=== PATIENT | male | born 1960 | race Caucasian/White ===

== ENCOUNTER 2016-09-10 13:38 | Emergency (ER) | payer OTHER ==
[2016-09-10] MEDS ORDERED: Lidocaine 1% 20 ML MDV ONE (13:53)
[2016-09-10 14:13] VITALS: BP 134/65
[2016-09-10] MEDS ORDERED: Bacitracin/Neomycin/Polymyxin B Oint 0.9 GM U/D Packet ONE (14:17)
--- NOTE | 2016-09-10 14:26 | EDM.PDOC ---
ED HPI Skin/Rash - General Chief Complaint: Laceration Stated Complaint: Cut to RT thumb Time Seen by Provider: 09/10/16 14:00 Source: Reports: Patient History Limitations: Reports: No limitations - History of Present Illness INITIAL COMMENTS - FREE TEXT/NARRATIVE: PT STATES HE ACCIDENTLY CUT RIGHT HAND WITH SHARP KNIFE. DENIES ANY OTHER INJURY Symptom Onset Date: 09/10/16 Timing: Reports: still present Location, Skin: Reports: upper extremity, right Severity: mild Known Identified Source: yes Place of Occurrence: home Associated Symptoms: Reports: no other symptoms - Related Data Allergies Allergy/AdvReac Type Severity Reaction Status Date / Time No Known Drug Allergies Allergy Cannot Verified 04/11/14 13:01 Remember Home Meds: Ambulatory Orders Medication Instructions Recorded Confirmed Multivitamin [Multi-Day Vitamins] 1 tab PO DAILY 09/10/16 09/10/16 Social & Family History - Tobacco Use Smoking Status *Q: Never Smoker Second Hand Smoke Exposure: No - Alcohol Use Days Per Week of Alcohol Use: 0 - Recreational Drug Use Recreational Drug Use: No ED ROS GENERAL - Review of Systems Review Of Systems: ROS reveals no pertinent complaints other than HPI. Constitutional: Reports: no symptoms HEENT: Reports: No symptoms Respiratory: Reports: No Symptoms Cardiovascular: Reports: No symptoms Endocrine: Reports: no symptoms GI/Abdominal: Reports: No symptoms : Reports: no symptoms Musculoskeletal: Reports: no symptoms Skin: Reports: wound (RIGHT HAND LACERATION) Neurological: Reports: No Symptoms Psychiatric: Reports: No symptoms Hematologic/Lymphatic: Reports: no symptoms Immunologic: Reports: no symptoms ED EXAM, SKIN/RASH Exam: See Below Exam Limited By: No limitations General Appearance: alert, WD/WN, no apparent distress Throat/Mouth: Normal inspection, Normal oropharynx, No airway compromise Respiratory/Chest: no respiratory distress Extremities: other (2 CM LINEAR LAC TO RIGHT THUMB) Psychiatric: normal affect, normal mood Skin: Warm, Dry, Intact, Normal color, No rash Location, Skin: upper extremity, right Lymphatic: no adenopathy ED SKIN PROCEDURES - Laceration/Wound Repair Right Hand Lac/wound length in cm: 2 Appearance: superficial Distal NVT: neuro & vascular intact, no tendon injury Anesthetic type: local Local anesthesia - Lidocaine (Xylocaine): 1% plain Local anesthetic volume: 2cc Skin prep: providone-iodine (betadine) Closed with: sutures Suture size: 4-0 # of sutures: 4 Suture type: prolene Course - Vital Signs Last Recorded V/S: Last Vital Signs Temp 98.5 F 09/10/16 14:12 Pulse 68 09/10/16 14:12 Resp 18 09/10/16 14:12 BP 134/65 09/10/16 14:12 Pulse Ox 95 09/10/16 14:12 - Orders/Labs/Meds Meds: Medications Discontinued Medications Generic Name Dose Route Start Last Admin Trade Name Mary Ann PRN Reason Stop Dose Admin Lidocaine HCl Confirm 09/10/16 13:53 Xylocaine 1% Administered 09/10/16 13:54 Dose 20 ml .ROUTE .STK-MED ONE Neomycin/Polymyxin/Bacitracin Confirm 09/10/16 14:17 Triple Antibiotic Oint Administered 09/10/16 14:18 Dose 1 each .ROUTE .STK-MED ONE Departure - Departure Time of Disposition: 14:28 Disposition: Home, Self-Care 01 Condition: good Clinical Impression: Laceration Instructions: Laceration Care, Adult, [id number], Stitches, Alba, or Adhesive Wound Closure, [id number] Forms: ED Department Discharge - Assessment/Plan Assessment:: LACERATION TO RIGHT HAND Plan: LACERATION REPAIR / SUTURE REMOVAL IN 10 DAYS
== END 2016-09-10 14:30 | disposition home or self-care (01) ==
LOC: KA.ED 13:38
DX: S61.411A Laceration without foreign body of right hand, initial encounter (principal); W26.0XXA Contact with knife, initial encounter; Y92.009 Unspecified place in unspecified non-institutional (private) residence as the place of occurrence of the external cause
CPT/HCPCS: 12001; 99283

== ENCOUNTER 2021-01-09 21:24 | Emergency (ER) | payer OTHER ==
[2021-01-09 21:43] VITALS: BP 133/88; PULSE 93
[2021-01-09] MEDS ORDERED: Ibuprofen 600 MG Tab PO ONE (21:45)
[2021-01-09] MEDS ORDERED: predniSONE 20 MG Tab PO ONE (21:48)
[2021-01-09] MEDS ORDERED: Cefdinir 300 MG Cap PO ONE (21:48)
--- NOTE | 2021-01-09 21:54 | EDM.PDOC ---
ED HPI GENERAL MEDICAL PROBLEM - General Chief Complaint: General Stated Complaint: Cold like symptoms Time Seen by Provider: 01/09/21 21:35 Source of Information: Reports: Patient, Significant Other History Limitations: Reports: No Limitations - History of Present Illness INITIAL COMMENTS - FREE TEXT/NARRATIVE: Patient presents with headache, sinus pressure, fever and cough. This has been going on for about 4 weeks; the cough a little less. He has tried Dayquil which usually works for him but he says about every 12-18 months he has a persistent one that requires steroid and antibiotic to clear. Generalized Pain Score (Numeric/FACES): 8 Headache Pain Score (Numeric/FACES): 8 - Related Data Allergies Allergy/AdvReac Type Severity Reaction Status Date / Time No Known Drug Allergies Allergy Cannot Verified 01/09/21 21:25 Remember Home Meds: Home Meds Multivitamin [Multi-Day Vitamins] 1 tab PO DAILY 09/10/16 [History] Fish Oil/[place]-3 Fatty Acids [Fish Oil 1,000 MG] 1 each PO DAILY 01/09/21 [History] Past Medical History - Past Health History Medical/Surgical History: Denies Medical/Surgical History Musculoskeletal History: Reports: Fracture - Past Surgical History Musculoskeletal Surgical History: Reports: Other (See Below) Social & Family History - Caffeine Use Caffeine Use: Reports: Coffee ED ROS GENERAL - Review of Systems Review Of Systems: See Below Constitutional: Reports: Fever HEENT: Denies: Throat Pain, Vision Change Respiratory: Reports: Cough. Denies: Shortness of Breath Cardiovascular: Denies: Chest Pain, Lightheadedness, Syncope GI/Abdominal: Denies: Abdominal Pain, Diarrhea, Vomiting : Reports: No Symptoms Musculoskeletal: Reports: No Symptoms Skin: Denies: Cyanosis, Jaundice, Mottled, Pallor, Diaphoresis Neurological: Reports: Headache. Denies: Confusion, Dizziness, Seizure, Syncope, Trouble Speaking, Difficulty Walking Psychiatric: Denies: Agitation, Anxiety, Confusion ED EXAM, GENERAL - Physical Exam Exam: See Below Exam Limited By: No Limitations General Appearance: Alert, WD/WN, No Apparent Distress Eye Exam: Bilateral Eye: EOMI, Normal Inspection, PERRL Ears: Normal External Exam, Normal Canal, Hearing Grossly Normal, Normal TMs Nose: Nasal Tenderness, Nasal Swelling (moderate; mucosal), Nasal Drainage Throat/Mouth: Normal Inspection, Normal Lips, Normal Voice, No Airway Compromise Head: Atraumatic, Normocephalic Neck: Normal Inspection, Full Range of Motion Respiratory/Chest: No Respiratory Distress, Lungs Clear, Normal Breath Sounds Cardiovascular: Regular Rate, Rhythm, No Murmur GI/Abdominal: Normal Bowel Sounds, Soft, Non-Tender Back Exam: Normal Inspection, Full Range of Motion Extremities: Normal Inspection, Normal Range of Motion Neurological: Alert, Oriented, Normal Cognition, No Motor/Sensory Deficits Psychiatric: Normal Affect, Normal Mood Skin Exam: Warm, Dry, Intact, Normal Color, No Rash Course - Vital Signs Last Recorded V/S: Last Vital Signs Temp 100.1 F 01/09/21 21:27 Pulse 93 01/09/21 21:42 Resp 20 01/09/21 21:42 BP 133/88 01/09/21 21:42 Pulse Ox 96 01/09/21 21:42 - Orders/Labs/Meds Meds: Medications Discontinued Medications Generic Name Dose Route Start Last Admin Trade Name Freq PRN Reason Stop Dose Admin Ibuprofen 600 mg 01/09/21 21:45 Ibuprofen 600 Mg Tab PO 01/09/21 21:46 ONETIME ONE - Re-Assessments/Exams Free Text/Narrative Re-Assessment/Exam: 01/09/21 21:58 Discussed findings and treatment plan. Gave doses of prednisone 40 mg and Cefdinir 600 mg tonight in ER and RX for Prednisone 40 mg #10, 2 po qd x 5 days, Cefdinir 300 mg #20, 1 po q12h x 10 days. Patient discharged to home in stable condition. Departure - Departure Time of Disposition: 21:50 Disposition: Home, Self-Care 01 Condition: Good Clinical Impression: Sinus headache Acute sinus infection Qualifiers: Sinusitis location: frontal Recurrence: not specified as recurrent Qualified Code(s): J01.10 - Acute frontal sinusitis, unspecified - Discharge Information Instructions: Sinus Headache Additional Instructions: Drink 8 cups of water daily. Take the prednisone and Cefdinir as directed. You can use Tylenol and/or Ibuprofen as needed for headache or fever. Follow up with your PCP if not resolving as expected. Return to ER as needed. Sepsis Event Note (ED) - Evaluation Sepsis Screening Result: No Definite Risk - Focused Exam Vital Signs: Vital Signs Temp Pulse Resp BP Pulse Ox 01/09/21 21:42 93 20 133/88 96 01/09/21 21:27 100.1 F 97 20 143/84 H 98
== END 2021-01-09 22:10 | disposition home or self-care (01) ==
LOC: KA.ED 21:24
DX: J01.10 Acute frontal sinusitis, unspecified (principal)
CPT/HCPCS: 99283; A9270-GY; J7512

== ENCOUNTER 2022-07-24 07:43 | Day surgery (SDC) | payer OTHER ==
[2022-07-24] MEDS ORDERED: Sodium Chloride 0.9% 10 ML Syringe FLUSH PRN (08:00)
[2022-07-24] MEDS: Lactated Ringers 1,000 ML IV SCH (08:17)
[2022-07-24] MEDS ORDERED: Propofol 200 MG/20 ML SDV ONE (08:59)
[2022-07-24] MEDS ORDERED: Midazolam 1 MG/ML 2 ML SDV ONE (08:59)
[2022-07-24 13:11] VITALS: BP 102/71; PULSE 62
== END 2022-07-24 11:42 | disposition home or self-care (01) ==
LOC: KA.SDS 07:43
PROVIDERS: ATTEND Family Medicine
DX: Z12.11 Encounter for screening for malignant neoplasm of colon (principal); D12.6 Benign neoplasm of colon, unspecified; K64.4 Residual hemorrhoidal skin tags; E78.2 Mixed hyperlipidemia; E66.3 Overweight
CPT/HCPCS: 00812; J2250; J2704; J7120